=== PATIENT | male | born 1990 | race Caucasian/White ===

== ENCOUNTER 2018-06-02 19:16 | Emergency (ER) | payer OTHER ==
[~2018-06-02] VITALS: Ht 190.5 cm; Wt 103.4 kg
[2018-06-02 20:06] LABS: HEMATOCRIT 43.3 % (42.0-52.0); HEMOGLOBIN 15.6 gm/dL (14.0-18.0); MCH 31.1 pg (26.0-34.0); MCHC 36.2 g/dL (28.0-37.0); MCV 85.8 fL (80.0-100.0); PLATELET COUNT 331 thou/uL (150-400); RBC 5.04 mil/uL (4.50-6.00); RDW 12.4 % (10.5-14.5); WBC 11.7 thou/uL (4.0-11.0)
[2018-06-02 20:07] LABS: CALCIUM 9.6 mg/dL (8.5-10.1); POTASSIUM 4.1 mmol/L (3.5-5.1)
[2018-06-02 20:39] LABS: ABSOLUTE NEUTROPHILS 8.4 thou/uL (1.4-8.2)
[2018-06-02 20:40] LABS: ANISOCYTOSIS 1+
[2018-06-02] MEDS ORDERED: NAPROSYN500 MG PO (20:59)
[2018-06-02] MEDS ORDERED: NORFLEX100 MG PO (20:59)
[2018-06-02 21:10] VITALS: BP 130/87
--- NOTE | 2018-06-03 07:59 | EKG ---
[place] [address] [address] [place] [address] ELECTROCARDIOGRAM REPORT Name: AMARILIS BLOUNT [id number] Admission: 06/02/18 Attend Phys: Discharge: 06/02/18 Date of : [birth year] Report #: [id number] THIS REPORT FOR: //name// [facility] ED Test Date: 2018-06-02 Test Time: 19:33:00 Pat Name: AMARILIS BLOUNT Department: Room: Gender: Religious Assistant: paula : 1990 Requested By: Lisa Lockhart Order Number: [id number] MD: Jasbir Mabry Measurements Intervals [place] Rate: 77 P: 55 NC: 151 QRS: 73 QRSD: 105 T: 31 QT: 369 QTc: 418 Interpretive Statements Sinus rhythm Nonspecific T wave abnormality No previous ECG available for comparison Electronically Signed On 06-03-2018 7:58:52 [employer]SEL[employer] by Jasbir Mabry [email or web address] <ELECTRONICALLY SIGNED> By: Jasbir Mabry MD, [facility] 06/03/18 [id number] Jasbir Mabry MD, FACC /EPI
== END 2018-06-02 21:11 | disposition home or self-care (01) ==
LOC: ER 19:16
PROVIDERS: Physician Assistant
DX: R07.89 Other chest pain (principal); F17.210 Nicotine dependence, cigarettes, uncomplicated; Z98.890 Other specified postprocedural states